=== PATIENT | male | born 1980 | race Two or more races ===

== ENCOUNTER 2021-05-06 14:35 | Outpatient (CLI) | payer OTHER | END 2021-05-06 14:45 | disposition home or self-care (01) | LOC: PPH VACUNA 14:35 | PROVIDERS: ATTEND Emergency Medicine Pediatric Emergency Medicine | DX: Z23 Encounter for immunization (principal) ==

== ENCOUNTER 2022-01-07 08:00 | Outpatient (CLI) | payer OTHER | END 2022-01-07 08:05 | disposition home or self-care (01) | LOC: PPH VACUNA 08:00 | PROVIDERS: ATTEND Emergency Medicine Pediatric Emergency Medicine | DX: Z23 Encounter for immunization (principal) ==

== ENCOUNTER 2023-01-29 12:35 | Outpatient (CLI) | payer OTHER | END 2023-01-29 12:45 | disposition home or self-care (01) | LOC: PPH VACUNA 12:35 | PROVIDERS: ATTEND Emergency Medicine Pediatric Emergency Medicine | DX: Z23 Encounter for immunization (principal) | CPT/HCPCS: 90686; G0008 ==